=== PATIENT | male | born 1960 | race Hispanic/Latino ===

== ENCOUNTER 2023-05-22 09:52 | Emergency (ER) | payer BC, SELFPAY ==
--- NOTE | ~2023-05-22 | XR_ITS ---
EXAMINATION: XR foot LT min 3V DATE: 05/22/2023 10:45 INDICATION: Left foot pain. TECHNIQUE: 4 views of left foot were obtained. COMPARISON: None. FINDINGS: There is mild hallux valgus. There is an old healed fracture deformity of the calcaneus wit h decreased Boehler's angle. No acute fracture. There is mild osteoarthritis of first metatarsophalan geal joint and some of the interphalangeal joints. IMPRESSION: 1. Mild polyarticular osteoarthritis. 2. Mild hallux valgus. Reviewed, dictated and finalized at location A. T MONITOR
[2023-05-22 10:05] VITALS: BP 144/76; PULSE 56; RESP 18; TEMP 36.1; O2SAT 99
--- NOTE | 2023-05-22 10:37 | ED.LOWEXIN ---
HPI - Extremity Injury (Lower) General Chief Complaint: Extremity Injury, Lower Stated Complaint: Left Foot Pain Time Seen by Provider: 05/22/23 10:28 Source: patient and RN notes reviewed Mode of arrival: ambulatory Limitations: no limitations History of Present Illness HPI Narrative: Patient presents today with a 3 day history of pain on the plantar aspect of his foot at the 1st and 2nd metatarsal. Denies injury or trauma. He has been using icy Hot with some mild relief. States pain increases with weight-bearing and with flexing of his toes. Related Data Home Medications Medication Instructions Recorded Confirmed atorvastatin 10 mg tablet mg 05/22/23 ergocalciferol (vitamin D2) 1,250 05/22/23 mcg (50,000 unit) capsule Allergies Allergy/AdvReac Type Severity Reaction Status Date / Time No Known Allergies Allergy Verified 05/22/23 10:05 Review of Systems Review of Systems: CONSTITUTIONAL: Denies body aches, fever, chills, or sweats. EYES: Denies visual changes, redness, or discharge. ENT: Denies rhinorrhea, congestion, sore throat, or otalgia. CARDIOVASCULAR: Denies chest pain, palpitations, or edema. RESPIRATORY: Denies cough or dyspnea. GASTROINTESTINAL: Denies abdominal pain, nausea, vomiting, or diarrhea. GENITOURINARY: Denies dysuria or hematuria. SKIN: Denies rash, itching, or wounds. MUSCULOSKELETAL: Denies back pain, or myalgia.+ left foot pain NEUROLOGIC: Denies headache, numbness, tingling, or weakness. PSYCH: Denies depression or anxiety. [facility] Past Medical History Medical History (Updated 05/22/23 @ 11:11 by Trena Burch, [facility], ) High cholesterol Comments At time of signature, I have reviewed and agree with nursing past medical, surgical, social and family history unless otherwise noted. Please see nursing chart for further information. There is no relevant family history pertinent to the presenting complaint Exam Narrative: GENERAL: Well-appearing, well-nourished, and in no acute distress. HEAD: Normocephalic, atraumatic. EYES: EOMI. No redness or drainage. Conjunctivae normal. ENT: Mucous membranes pink and moist. NECK: Normal AROM. CHEST: No respiratory distress. EXTREMITIES: Left foot: Tenderness to the plantar aspect of the foot at the proximal 1st and 2nd metatarsals. No ecchymosis, edema, erythema. No tenderness to the toes or remainder of the foot. Distal sensation intact. Capillary refill normal. Pedal pulse normal. Color normal. SKIN: Warm, dry, no rash. Capillary refill normal. Normal skin turgor. NEURO: No focal deficits. Alert and oriented x3. Gait steady. PSYCH: Normal affect. No signs of depression or anxiety. Course Course Level of Care: Express Care Visit Vital Signs Vital signs: Vital Signs Temperature 97.0 F L 05/22/23 10:05 Pulse Rate 56 L 05/22/23 10:05 Respiratory Rate 18 05/22/23 10:05 Blood Pressure 144/76 H 05/22/23 10:05 Pulse Oximetry 99 05/22/23 10:05 Oxygen Delivery Room Air 05/22/23 10:05 Temperature 97.0 F L 05/22/23 10:05 Pulse Rate 56 L 05/22/23 10:05 Respiratory Rate 18 05/22/23 10:05 Blood Pressure 144/76 H 05/22/23 10:05 Pulse Oximetry 99 05/22/23 10:05 Oxygen Delivery Room Air 05/22/23 10:05 Reviewed MDM - Extremity Injury (Lower) MDM Narrative Medical decision making narrative: X-ray shows arthritis and a bunion. These findings may not explain patient's pain. Discussed taking an anti-inflammatory for pain. Will prescribe him diclofenac to take. Recommend following up with podiatry for further evaluation. Patient agrees with plan. Anticipatory guidance given. Differential Diagnosis Differential diagnosis: Likely other (Arthritis, fracture, gout,neuroma) Imaging Data Radiologist's impression: ITS Impressions Foot X-Ray 05/22/23 10:48 IMPRESSION: 1. Mild polyarticular osteoarthritis. 2. Mild hallux valgus. Critical Care Time Cr
[2023-05-22 11:16] VITALS: PULSE 62; RESP 18; O2SAT 99
== END 2023-05-22 11:16 | disposition home or self-care (01) ==
PROVIDERS: Emergency Provider Nurse Practitioner; PCP Emergency Medicine
DX: M79.672 Pain in left foot (principal)
CPT/HCPCS: 73630; 99213; G0463

== ENCOUNTER 2023-09-30 13:06 | Emergency (ER) | payer MEDICARE, MEDICAID, SELFPAY ==
--- NOTE | ~2023-09-30 | XR_ITS ---
XR ribs LT 2V w CXR 2V DATE: 09/30/2023 14:03 INDICATION: Fall. Left rib pain. TECHNIQUE: PA and lateral chest. 4 views of the left ribs. COMPARISON: None FINDINGS: There is osteopenia. No left rib fracture is noted. Bone infarct or benign enchondroma of the proximal left humerus. Plate and screws of the mid left hum eral shaft. Degenerative spurring of the thoracic spine. Borderline heart size. Aortic tortuosity. No hilar or mediastinal enlargement. No pulmonary infiltrate or consolidation, pleural effusion or pulmonary vascular congestion or pneumo thorax is detected. IMPRESSION: No recent left rib fractures detected Osteopenia Borderline heart size No active pulmonary disease Reviewed, dictated and finalized at location L.
--- NOTE | 2023-09-30 13:08 | ED.GENADULT ---
HPI - General Adult General Chief complaint: Fall Stated complaint: Left Side Body Pain Time Seen by Provider: 09/30/23 13:07 Source: patient Mode of arrival: ambulatory Limitations: no limitations History of Present Illness HPI narrative: Patient is a 63-year-old male who presents with left sided chest wall pain after fall on Wednesday. Patient also reports pain to left back. Has been taking ibuprofen. Denies any shortness of breath. Did not hit head on fall. Related Data Home Medications Medication Instructions Recorded Confirmed atorvastatin 10 mg tablet 10 mg PO HS 05/22/23 09/30/23 ergocalciferol (vitamin D2) 1,250 1,250 mcg PO DAILY 05/22/23 09/30/23 mcg (50,000 unit) capsule Allergies Allergy/AdvReac Type Severity Reaction Status Date / Time No Known Allergies Allergy Verified 09/30/23 13:21 Review of Systems Review of Systems: All systems reviewed & are unremarkable except as noted in HPI and below Constitutional: Constitutional: Denies body ache(s), Denies chills, Denies fatigue, Denies fever(s), Denies headache(s), Denies malaise and Denies weakness Eyes: Eyes: Denies blurry vision, Denies irritation and Denies loss of vision ENT: Denies otalgia, Denies headache(s), Denies nasal discharge, Denies sinus pain and Denies sore throat Cardiovascular: Cardiovascular: Denies chest pain, Denies irregular heart rhythm and Denies dyspnea Respiratory: Respiratory: Denies dyspnea Gastrointestinal: Gastrointestinal: Denies abdominal pain, Denies melena, Denies hematochezia, Denies diarrhea, Denies nausea and Denies vomiting Musculoskeletal: Musculoskeletal: Denies back pain, Reports myalgias and Denies arthralgias Integumentary/Breasts: Skin/Breast: Denies pruritus and Denies rash Neurologic: Denies headache(s), Denies loss of vision and Denies weakness Psychiatric: Psychiatric: Reports no additional psychiatric complaints Endocrine: Endocrine: Denies fatigue PMFSH Past Medical History Medical History High cholesterol Comments At time of signature, agree with nursing past medical, surgical, social and family history. There is no relevant family history pertinent to the presenting complaint. Exam Const: General: cooperative, healthy appearing, comfortable, no acute distress and well nourished Nutritional Appearance: well nourished Orientation/consciousness: patient oriented x3 Limitations: no limitations HENMT: Head: normal to inspection, normocephalic and atraumatic Ears: hearing grossly normal bilaterally and external ears normal Face/Nose/Sinus: Normal external nose present, normal facial exam and face symmetric Face and sinus: normal facial exam and face symmetric Mouth: Yes lip normal Eyes: General: appearance normal, both eyes and all related structures Alignment and Position: alignment normal and position normal Periorbital: periorbital findings normal Eyelids: eyelids normal Pupils: Equal, round and reactive pupils present EOM: EOMs intact bilaterally Neck: Neck: normal visual inspection, full ROM and supple Chest: Chest palpation & inspection: normal inspection of the chest, normal palpation of entire chest wall and tenderness rib left anterior-axillary line involving the 6th rib, involving the 7th rib and involving the 8th rib Resp: Effort & Inspection: normal respiratory effort and able to speak in complete sentences Auscultation: clear to auscultation bilaterally, no crackles, no rales, no rhonchi and no wheezes Cardio: Rate: regular rate Rhythm: regular rhythm Heart sounds: S1 normal heart sound present and S2 normal heart sound present GI: Inspection: normal to inspection Skin: General skin exam: normal color and no rashes or lesions noted Neuro: General: patient oriented x3 and moves all extremities Cranial nerves: Yes Equal, round and reactive pupils present Speech: normal speech Gait exam (Neuro): Normal gait pres
[2023-09-30 13:30] VITALS: BP 160/88; PULSE 94; RESP 20; TEMP 36.3; O2SAT 99
== END 2023-09-30 14:30 | disposition home or self-care (01) ==
PROVIDERS: Emergency Provider Nurse Practitioner Family; PCP Emergency Medicine
DX: S29.011A Strain of muscle and tendon of front wall of thorax, initial encounter (principal); W19.XXXA Unspecified fall, initial encounter; E78.00 Pure hypercholesterolemia, unspecified
CPT/HCPCS: 71046; 71100; 99213; G0463

== ENCOUNTER 2024-11-19 09:23 | Emergency (ER) | payer MEDICARE, SELFPAY ==
--- NOTE | 2024-11-19 09:28 | ED.BACK ---
HPI - Back Pain/Injury General Chief Complaint: Back Pain/Injury Stated Complaint: Lower Back Pain Time Seen by Provider: 11/19/24 09:26 Source: patient, RN notes reviewed and old records reviewed Mode of arrival: ambulatory Limitations: no limitations History of Present Illness HPI Narrative: 64-year-old male presents to the [facility] with right lower back pain for 3-4 days. 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 Started with some minor discomfort. Has increased in pain. Has taken Tylenol. No erythema, ecchymosis noted. No swelling noted. No rashes noted. Patient denies any trauma. Denies any loss retention of bowel or bladder. No midline tenderness. Walks with a normal gait. No saddle anesthesia Onset (ago): day(s) (3-4) Related Data Home Medications ?Medication ?Instructions ?Recorded ?Confirmed ?Last Taken ?Type atorvastatin 10 mg tablet 10 mg PO HS 05/22/23 09/30/23 Unknown History ergocalciferol (vitamin D2) 1,250 1,250 mcg PO DAILY 05/22/23 09/30/23 Unknown History mcg (50,000 unit) capsule Allergies Allergy/AdvReac Type Severity Reaction Status Date / Time No Known Allergies Allergy Verified 09/30/23 13:21 Review of Systems Review of Systems: All systems reviewed & are unremarkable except as noted in HPI and below Constitutional: Constitutional: Reports no additional constitutional complaints ENT: Reports system reviewed and no additional complaints, except as documented Cardiovascular: Cardiovascular: Reports no additional cardiovascular complaints, Denies chest pain and Denies dyspnea Respiratory: Respiratory: Reports no additional respiratory complaints, Denies chest congestion, Denies cough and Denies dyspnea Musculoskeletal: Musculoskeletal: Reports as per HPI Integumentary/Breasts: Skin/Breast: Reports system reviewed and no additional complaints, except as docu PMFSH Past Medical History Medical History High cholesterol Comments At the time of my signature, I reviewed and agree with the nursing past medical, surgical, social, and family history. There is no relevant family history pertinent to the patient complaint. Exam Const: General: cooperative, healthy appearing, comfortable, no acute distress, well developed, alert and well nourished Nutritional Appearance: well nourished Orientation/consciousness: patient oriented x3 Limitations: no limitations HENMT: Head: normal to inspection Eyes: General: appearance normal, both eyes and all related structures Alignment and Position: alignment normal Neck: Neck: normal visual inspection, full ROM, no lymphadenopathy and no meningeal signs Chest: Chest palpation & inspection: normal inspection of the chest Resp: Effort & Inspection: normal respiratory effort and able to speak in complete sentences Cardio: Rate: regular rate GI: GI Palp: No abdominal tenderness Back/Spine/Pelvis: Back: back tenderness (Right lower lumbar) Cervical Spine: normal cervical lordosis, cervical ROM normal and No Cervical spine tenderness Thoracic/Lumbar Spine: paraspinal muscle tenderness on the right in the lower lumbar, No thoracic spinal tenderness and No lumbar spinal tenderness Pelvis: no pain with anterior-posterior compression, no pain with lateral compression and no sciatic notch tenderness Back/spine/pelvis image:  1. Patient reports discomfort with movement, changing positions, bending over. No erythema, ecchymosis or swelling noted. Skin: General skin exam: normal color and no rashes or lesions noted Neuro: General: patient oriented x3, gait normal, moves all extremities and no meningeal signs Cognition (Neuro): normal cognition Speech: normal speech Gait exam (Neuro): Normal gait present Extrem: General: normal to inspection, full ROM, capillary refill normal and normal gait Psych: Appearance: grossly normal and well kempt Mental Status: mental status grossly normal Speech and movement: Normal speech and movement present and Clear speech present Affect: normal affect Attitude: cooperative Course Course Level of Care: Express Care Visit Vital Signs Vital signs: Vital Signs Temperature 97.2 F L 11/19/24 09:33 Pulse Rate 50 L 11/19/24 09:33 Respiratory Rate 20 11/19/24 09:33 Blood Pressure 147/73 H 11/19/24 09:33 Pulse Oximetry 99 11/19/24 09:33 Oxygen Delivery Room Air 11/19/24 09:33 Temperature 97.2 F L 11/19/24 09:33 Pulse Rate 50 L 11/19/24 09:33 Respiratory Rate 20 11/19/24 09:33 Blood Pressure 147/73 H 11/19/24 09:33 Pulse Oximetry 99 11/19/24 09:33 Oxygen Delivery Room Air 11/19/24 09:33 Reviewed MDM - Back Pain/Injury MDM Narrative Medical decision making narrative: Patient sitting sitting in exam room. Vitals stable. patient is in no acute distress. Patient presents with 3-4 day history of low back pain Pain worse with movement. No saddle anesthesia, midline tenderness. Walks with a normal gait. Patient appropriate for outpatient treatment with anti-inflammatory, muscle relaxer. Discharge instructions reviewed with patient, as well as provided in writing per nursing staff. The instructions also include specific and strict return/GO TO THE ER as well as f/u information. All questions have been answered, and the patient deny any further questions with discharge and discharge plan. Some parts of this dictation were generated by voice recognition software and may contain typographical and/or grammatical inaccuracies. Differential Diagnosis Differential diagnosis: Likely lumbar radiculopathy, sciatica, strain of lumbar region and other Critical Care Time Critical Care Time Critical Care Time: No Discharge Plan Discharge Clinical Impression: Strain of muscle, fascia and tendon of lower back, initial encounter Patient Disposition: Home Condition: Stable Instructions: Antibiotic Form, Low Back Strain (ED), Acute Low Back Pain (ED), Lower Back Exercises (ED) Additional Instructions: Warrior ibuprofeno seg?n las indicaciones para reducir la inflamaci?n y aliviar el dolor. Warrior baclofeno (relajante muscular) seg?n las indicaciones. No maddy alcohol, conduzca, opere maquinaria ni realice ninguna actividad peligrosa mientras est? tomando magnus medicamento. Ejercicio: Combine ejercicio aer?bico, jose caminar o nadar, con ejercicios espec?ficos para mantener los m?sculos de la espalda y el abdomen jessica y flexibles. Levantar objetos pesados ??correctamente: Aseg?rese de levantar objetos pesados ??con las piernas, no con la espalda. No se agache para recoger algo. Mantenga la espalda recta y flexione las rodillas. Evite fumar: Tanto el humo jose la nicotina provocan un envejecimiento m?s r?pido de lo normal de la columna vertebral. Postura correcta: Ekta buena postura es importante para evitar problemas futuros. Un terapeuta puede ense?arle a ponerse de pie, sentarse y levantar objetos de forma gray. Use calor h?medo y tibio para aliviar el dolor. El uso de productos t?picos jose Biofreeze, Alfred-Pizarro o Aspercreme tambi?n puede ayudar. Consulte con garcia m?dico de cabecera en 2 o 3 d?as. Esta afecci?n puede volverse cr?julian y ser? ?l quien le ayude a controlar el dolor y le solicite pruebas adicionales. Dir?nickie a la david de urgencias m?s cercana si presenta problemas con la funci?n vesical o intestinal, debilidad o p?rdida de sensibilidad en ekta o ambas piernas. Take ibuprofen as directed to decrease inflammation and to help pain. Take Baclofen (muscle relaxer) as directed. Do not drink, drive, operate machinery, or do anything dangerous while taking this medication Exercise:Combine aerobic exercise, like walking or swimming, with specific exercises to keep the muscles in your back and abdomen strong and flexible. Proper Lifting:Be sure to lift heavy items with your legs, not your back. Do not bend over to pick something up. Keep your back straight and bend at your knees. Avoid Smoking:Both the smoke and the nicotine cause your spine to age faster than normal. Proper Posture:Good posture is important for avoiding future problems. A therapist can teach you how to safely stand, sit, and lift. Use warm moist heat to help with pain. Using topical such as Biofreeze, Alfred-Pizarro or Aspercreme can also help Follow up with Primary provider in 2-3 days, This may become a chronic condition and they will be the one to help manage your pain and order additional testing. Go to the nearest ER if you develop problems with bladder/bowel function, weakness or loss of feeling in one or both of your legs. Patient Language: Frisian Prescriptions: New baclofen 10 mg tablet 10 mg PO TID PRN (Reason: muscle pain) Qty: 15 0RF lidocaine 5 % adhesive patch,medicated 1 patch topical DAILY Qty: 15 0RF Rx Instructions: leave on most painful area for up to 12 hrs ibuprofen 600 mg tablet 600 mg PO TID PRN (Reason: fever or pain) Qty: 30 0RF No Action atorvastatin 10 mg tablet 10 mg PO HS ergocalciferol (vitamin D2) 1,250 mcg (50,000 unit) capsule 1,250 mcg PO DAILY baclofen 10 mg tablet 10 mg PO BID Qty: 10 0RF lidocaine 5 % adhesive patch,medicated 1 patch topical DAILY Qty: 15 0RF Rx Instructions: leave on most painful area for up to 12 hrs ibuprofen 600 mg tablet 600 mg PO QID PRN (Reason: pain) Qty: 30 0RF Follow-up/Referrals: Satish Peñaloza MD [Primary Care Provider] - 2 Weeks ([facility] follow up 147/73 blood pressure check) Stand Alone Forms: Work/School Release IP Time of Disposition: 09:40
[2024-11-19 09:33] VITALS: BP 147/73; PULSE 50; RESP 20; TEMP 36.2; O2SAT 99
== END 2024-11-19 09:53 | disposition home or self-care (01) ==
PROVIDERS: Emergency Provider Nurse Practitioner; PCP Emergency Medicine
DX: S39.012A Strain of muscle, fascia and tendon of lower back, initial encounter (principal); X58.XXXA Exposure to other specified factors, initial encounter; E78.00 Pure hypercholesterolemia, unspecified
CPT/HCPCS: 99213; G0463